=== PATIENT | male | born 1990 | race Caucasian/White ===

== ENCOUNTER 2020-03-19 13:15 | Emergency (ER) | payer BC ==
[~2020-03-19] VITALS: Ht 175.3 cm; Wt 80.0 kg
[2020-03-19 14:12] LABS: BASO % 0.6 % (0.0-1.0); EOS # 0.1 10^3/uL (0.0-0.5); EOS % 0.7 % (0.0-3.0); HEMATOCRIT 47.8 % (42.0-52.0); HEMOGLOBIN 16.1 g/dl (13.5-17.5); LYMPH # 1.8 10^3/uL (1.5-5.0); LYMPH % 26.2 % (24.0-44.0); MEAN CORPUSCULAR HEMOGLOBIN 29.7 pg (27.0-33.0); MEAN CORPUSCULAR HGB CONC 33.7 g/dl (32.0-36.5); MONO # 0.3 10^3/uL (0.0-0.8); MONO % 4.8 % (0.0-5.0); NEUTROPHILS # 4.7 10^3/uL (1.5-8.5); NEUTROPHILS % 67.6 % (36.0-66.0); PLATELET COUNT, AUTOMATED 267 10^3/uL (150-450); RED BLOOD COUNT 5.43 10^6/uL (4.30-6.10); WHITE BLOOD COUNT 6.9 10^3/uL (4.0-10.0)
[2020-03-19 14:47] LABS: ALBUMIN 4.7 GM/DL (3.2-5.2); ALT/SGPT 34 U/L (12-78); BILIRUBIN,DIRECT 0.2 MG/DL (0.0-0.2); BILIRUBIN,TOTAL 0.7 MG/DL (0.2-1.0); BLOOD UREA NITROGEN 17 MG/DL (7-18); CALCIUM LEVEL 10.1 MG/DL (8.5-10.1); CARBON DIOXIDE LEVEL 30 MEQ/L (21-32); CHLORIDE LEVEL 103 MEQ/L (98-107); CREATININE FOR GFR 1.11 MG/DL (0.70-1.30); GLOMERULAR FILTRATION RATE > 60.0 (>60); GLUCOSE, FASTING 87 MG/DL (70-100); LIPASE 121 U/L (73-393); POTASSIUM SERUM 4.1 MEQ/L (3.5-5.1); SODIUM LEVEL 137 MEQ/L (136-145); TOTAL PROTEIN 7.9 GM/DL (6.4-8.2)
[2020-03-19 15:13] VITALS: BP 123/78
== END 2020-03-19 15:14 | disposition home or self-care (01) ==
LOC: M ED 13:15
DX: R10.9 Unspecified abdominal pain (principal)

== ENCOUNTER → 2020-05-11 | Outpatient (REF) | payer BC | LOC: M WUC 19:35 | PROVIDERS: ATTEND Physician Assistant | DX: N39.0 Urinary tract infection, site not specified (principal) ==

== ENCOUNTER → 2020-06-05 | Outpatient (REF) | payer BC | LOC: M LAB REF 15:01 | PROVIDERS: ATTEND Family Medicine | DX: R35.0 Frequency of micturition (principal) ==

== ENCOUNTER → 2020-06-08 | Outpatient (REF) | payer BC | LOC: M LAB REF 16:55 | PROVIDERS: ATTEND Physician Assistant | DX: R35.0 Frequency of micturition (principal) ==

== ENCOUNTER → 2020-06-23 | Outpatient (CLI) | payer SELFPAY | LOC: M LABSMTC 10:41 | PROVIDERS: ATTEND Pediatrics | DX: Z11.59 Encounter for screening for other viral diseases (principal) ==

== ENCOUNTER → 2020-07-07 | Outpatient (REF) | payer BC | LOC: M LAB REF 17:10 | PROVIDERS: ATTEND Physician Assistant | DX: K63.2 Fistula of intestine (principal) ==

== ENCOUNTER → 2020-08-19 | Outpatient (CLI) | payer BC ==
[~2020-08-19] MED LIST: GASTROGRAFIN SOLUTION 30ML (Q9963) As Ordered ONE; ISOVUE-370 76% 100ML VIAL As Ordered ONE
--- NOTE | 2020-08-20 11:09 | REP ---
INDICATION: PERIUMBILICAL PAIN. COMPARISON: None TECHNIQUE: Axial contrast-enhanced images from the lung bases to the pubic symphysis using oral and 100 cc Isovue 370 intravenous contrast material. Coronal and sagittal reformations obtained.. This CT examination was performed using the following dose reduction techniques: Automated exposure control, adjustment of mA and/or kv according to the patient's size, and the use of iterative reconstruction technique. FINDINGS: Liver, spleen, pancreas, gallbladder, bilateral adrenal glands and kidneys are normal. Incidental 1 cm left renal hypodensity compatible with cyst. The enteric system including stomach, small, and large bowel appears normal. No evidence for obstruction or acute inflammatory process. Normal terminal ileum and cecum are identified in the right lower quadrant. Evidence for prior appendectomy. Pelvis demonstrates normal bladder and age-appropriate prostate/seminal vesicles. No ascites. No free air. No intraperitoneal or retroperitoneal adenopathy. Abdominal aorta and vasculature appear normal. Musculoskeletal structures are intact and without acute osseous abnormality. IMPRESSION: No acute abdominopelvic pathology appreciated. As above. <Electronically signed by Chris Ferrari > 08/20/20 0031
== END ==
LOC: M RAD 11:47
PROVIDERS: ATTEND Internal Medicine Gastroenterology
DX: R10.33 Periumbilical pain (principal)
CPT/HCPCS: 74177; Q9963; Q9967

== ENCOUNTER → 2020-09-02 | Outpatient (CLI) | payer BC | LOC: M LABSMTC 09:52 | PROVIDERS: ATTEND Anesthesiology | DX: Z01.812 Encounter for preprocedural laboratory examination (principal); Z20.822 Contact with and (suspected) exposure to COVID-19 ==

== ENCOUNTER 2020-09-07 12:09 | Day surgery (SDC) | payer BC ==
[~2020-09-07] VITALS: Ht 175.3 cm; Wt 81.2 kg
[~2020-09-07 12:09] MED LIST changes: -GASTROGRAFIN SOLUTION 30ML (Q9963) As Ordered ONE; -ISOVUE-370 76% 100ML VIAL As Ordered ONE; +NS 1,000 ML IV ONE
[2020-09-07] MEDS ORDERED: LIDOCAINE 2% 100MG/5ML SDV (FOR ANES.) As Ordered ONE (12:17)
[2020-09-07] MEDS ORDERED: propofoL 200 MG/20 ML VIAL As Ordered ONE (12:17)
--- NOTE | 2020-09-07 14:48 | ROOR ---
Patient Name: Sunny Buenrostro Procedure Date: 09/07/2020 2:45 PM Date of : 1990 Age: 30 Room: [facility] Gender: Male Note Status: Finalized Procedure: Upper GI endoscopy Indications: Epigastric abdominal pain Providers: Michael SALGADO MD Referring MD: Jaleesa FRIEND DO Requesting Provider: Medicines: Monitored Anesthesia Care Complications: No immediate complications. Procedure: Pre-Anesthesia Assessment: - The heart rate, respiratory rate, oxygen saturations, blood pressure, adequacy of pulmonary ventilation, and response to care were monitored throughout the procedure. The Endoscope was introduced through the mouth, and advanced to the second part of duodenum. The upper GI endoscopy was accomplished without difficulty. The patient tolerated the procedure well. Findings: The esophagus was normal. The stomach was normal. The examined duodenum was normal. Impression: - Normal esophagus. - Normal stomach. - Normal examined duodenum. - No specimens collected. Recommendation: - Observe patient's clinical course. - Follow an antireflux regimen. Procedure Code(s): --- Professional --- 09303, Esophagogastroduodenoscopy, flexible, transoral; diagnostic, including collection of specimen(s) by brushing or washing, when performed (separate procedure) Diagnosis Code(s): --- Professional --- R10.13, Epigastric pain CPT copyright 2019 [employer]. All rights reserved. The codes documented in this report are preliminary and upon fur puller review may be revised to meet current compliance requirements. Michael Salgado MD Michael SALGADO MD 09/07/2020 2:48:17 PM Electronically signed by Michael SALGADO MD Number of Addenda: 0 Note Initiated On: 09/07/2020 2:45 PM Estimated Blood Loss: Estimated blood loss: none.
[2020-09-07 15:15] VITALS: BP 124/67
== END 2020-09-07 15:19 | disposition home or self-care (01) ==
LOC: M OPP 12:09
PROVIDERS: ATTEND Internal Medicine Gastroenterology
DX: R10.13 Epigastric pain (principal); Z83.3 Family history of diabetes mellitus

== ENCOUNTER 2022-06-10 20:26 | Emergency (ER) | payer BC ==
[~2022-06-10] VITALS: Ht 175.3 cm; Wt 90.9 kg
[2022-06-10] MEDS ORDERED: MIDAZOLAM INJ 2MG/2ML VIAL (J2250 PER 1MG) IV STA (20:48)
[2022-06-10] MEDS ORDERED: MIDAZOLAM INJ 2MG/2ML VIAL (J2250 PER 1MG) IV ONE (20:50)
[2022-06-10] MEDS ORDERED: CEFEPIME HCL 2 GM in D5W MINI-BAG PLUS 50 ML IV ONE (21:25)
[2022-06-10] MEDS ORDERED: MORPHINE 4 MG/ML 1ML VIAL/SYRINGE As Ordered ONE (21:34)
[2022-06-10] MEDS ORDERED: MORPHINE 4 MG/ML 1ML VIAL/SYRINGE IV ONE (21:35)
[2022-06-10] MEDS ORDERED: TRAM50TA2 PO (22:13)
[2022-06-10] MEDS ORDERED: traMADol 50 MG TAB (HOME DOSE PACK) PO ONE (22:20)
[2022-06-10 22:32] LABS: BLOOD UREA NITROGEN 21 MG/DL (7-18); CALCIUM LEVEL 9.8 MG/DL (8.5-10.1); CARBON DIOXIDE LEVEL 22 MEQ/L (21-32); CHLORIDE LEVEL 105 MEQ/L (98-107); CREATININE FOR GFR 1.41 MG/DL (0.70-1.30); GLOMERULAR FILTRATION RATE > 60.0 (>60); GLUCOSE, FASTING 113 MG/DL (70-100); POTASSIUM SERUM 3.2 MEQ/L (3.5-5.1); SODIUM LEVEL 139 MEQ/L (136-145)
[2022-06-10] MEDS ORDERED: POTASSIUM CHLORIDE 10MEQ SR TABLET PO ONE (22:35)
[2022-06-10 23:05] VITALS: BP 114/70
[2022-06-11] MEDS ORDERED: FILGRASTIM 480 MCG/0.8 ML SYRINGE **SC ADMINISTRATION ONLY SC SCH (09:00)
[2022-06-14] MEDS ORDERED: ACET-897 PO (15:14)
== END 2022-06-10 23:31 | disposition home or self-care (01) ==
LOC: M ED 20:26
DX: S43.004A Unspecified dislocation of right shoulder joint, initial encounter (principal); M66.261 Spontaneous rupture of extensor tendons, right lower leg; E86.0 Dehydration; W19.XXXA Unspecified fall, initial encounter; Y93.66 Activity, soccer
CPT/HCPCS: 23655; 73020; 73030; 73560; 80048; 82550; 96374; 99285; J2250; J2270

== ENCOUNTER → 2022-06-13 | Outpatient (CLI) | payer BC ==
[~2022-06-13] MED LIST changes: +ACET-897 PO; -NS 1,000 ML IV ONE; +TRAM50TA2 PO
== END ==
LOC: M LABSMTC 11:15
PROVIDERS: ATTEND Anesthesiology
DX: Z01.812 Encounter for preprocedural laboratory examination (principal); Z11.52 Encounter for screening for COVID-19

== ENCOUNTER 2022-06-15 09:26 | Day surgery (SDC) | payer BC ==
[~2022-06-15] VITALS: Ht 175.3 cm; Wt 90.8 kg
[~2022-06-15 09:26] MED LIST changes: +ceFAZolin SOD 2 GM in IV 1 EA IV ONE
[2022-06-15] MEDS ORDERED: EPINEPHrine INJ 1 MG/ML 1ML AMP XX ONE (09:30)
[2022-06-15] MEDS ORDERED: fentaNYL 100 MCG/2 ML INJECTION IV PRN (10:35)
[2022-06-15] MEDS ORDERED: LIDOCAINE 1% SDV 5ML VIAL PN ONE (10:35)
[2022-06-15] MEDS ORDERED: ROPIvacaine 0.5% 30ML INJECTION (J2795 PER 1MG) PN ONE (10:35)
[2022-06-15] MEDS ORDERED: EPINEPHrine INJ 1 MG/ML 1ML AMP As Ordered ONE (10:51)
[2022-06-15] MEDS: MIDAZOLAM INJ 2MG/2ML VIAL (J2250 PER 1MG) IV PRN ×2 (10:52→10:53)
[2022-06-15] MEDS ORDERED: KETOROLAC 60MG 2ML VIAL As Ordered ONE (11:15)
[2022-06-15] MEDS ORDERED: LIDOCAINE 2% 100MG/5ML SDV (FOR ANES.) As Ordered ONE (11:15)
[2022-06-15] MEDS ORDERED: dexameTHASONE 4 MG/ML 1ML VIAL (J1100 PER 1MG) As Ordered ONE (11:15)
[2022-06-15] MEDS ORDERED: ONDANSETRON 4MG 2ML VIAL As Ordered ONE (11:15)
[2022-06-15] MEDS ORDERED: propofoL 200 MG/20 ML VIAL As Ordered ONE ×2 (11:15→11:30)
[2022-06-15] MEDS ORDERED: fentaNYL 100 MCG/2 ML INJECTION As Ordered ONE (11:17)
[2022-06-15] MEDS ORDERED: MIDAZOLAM INJ 2MG/2ML VIAL (J2250 PER 1MG) As Ordered ONE (11:17)
[2022-06-15] MEDS ORDERED: LR 1,000 ML IV SCH (12:30)
[2022-06-15] MEDS ORDERED: ONDANSETRON 4MG 2ML VIAL IV PRN (12:30)
[2022-06-15] MEDS ORDERED: METOCLOPRAMIDE INJ 10MG/2ML VIAL (J2765 PER 1) IV PRN (12:30)
[2022-06-15] MEDS ORDERED: ASPI32ECTA PO (12:55)
[2022-06-15] MEDS: oxyCODONE 5MG TAB PO PRN ×2 (13:01→13:33)
[2022-06-15] MEDS: fentaNYL 100 MCG/2 ML INJECTION IV PRN ×4 (13:01→13:19)
[2022-06-15] MEDS: MORPHINE 2 MG/ML 1ML VIAL IV PRN ×2 (13:33→13:41)
[2022-06-15] MEDS ORDERED: OXYC-517 PO (14:03)
[2022-06-15 14:30] VITALS: BP 118/67
== END 2022-06-15 15:13 | disposition home or self-care (01) ==
LOC: M SDC 09:26
PROVIDERS: ATTEND Orthopaedic Surgery
DX: S86.311A Strain of muscle(s) and tendon(s) of peroneal muscle group at lower leg level, right leg, initial encounter (principal); Z79.899 Other long term (current) drug therapy
CPT/HCPCS: 27380; J0171; J0690; J1100; J1885; J2250; J2270; J2405; J3010

== ENCOUNTER 2022-07-27 08:29 | Outpatient (RCR) | payer BC ==
[~2022-07-27 08:29] MED LIST changes: +ASPI32ECTA PO; +OXYC-517 PO; -ceFAZolin SOD 2 GM in IV 1 EA IV ONE
== END 2022-07-30 ==
LOC: M PT 08:29
PROVIDERS: ATTEND Orthopaedic Surgery Hand Surgery
DX: S76.111D Strain of right quadriceps muscle, fascia and tendon, subsequent encounter (principal); W18.30XD Fall on same level, unspecified, subsequent encounter

== ENCOUNTER 2022-08-25 10:45 | Outpatient (RCR) | payer BC | END 2022-08-30 | LOC: M PT 10:45 | PROVIDERS: ATTEND Orthopaedic Surgery Hand Surgery | DX: S76.111D Strain of right quadriceps muscle, fascia and tendon, subsequent encounter (principal) ==

== ENCOUNTER 2022-09-21 07:38 | Outpatient (RCR) | payer BC | END 2022-09-27 | LOC: M PT 07:38 | PROVIDERS: ATTEND Orthopaedic Surgery Hand Surgery | DX: S76.111A Strain of right quadriceps muscle, fascia and tendon, initial encounter (principal) ==

== ENCOUNTER 2022-10-27 07:32 | Outpatient (RCR) | payer BC | END 2022-10-28 | LOC: M PT 07:32 | PROVIDERS: ATTEND Orthopaedic Surgery Hand Surgery | DX: S76.111A Strain of right quadriceps muscle, fascia and tendon, initial encounter (principal) ==

== ENCOUNTER → 2023-06-13 | Outpatient (CLI) | payer BC, OTHER ==
[~2023-06-13] MED LIST changes: +PROHANCE 279.3MG/ML 15ML VIAL ONE; +PROHANCE 279.3MG/ML 5ML VIAL ONE
== END ==
LOC: M PLAIMG 07:36
PROVIDERS: ATTEND Physician Assistant
DX: D48.0 Neoplasm of uncertain behavior of bone and articular cartilage (principal)